=== PATIENT | male | born 1995 | race Caucasian/White ===

== ENCOUNTER 2016-06-16 13:52 | Inpatient (IN) | payer MEDICAID ==
[2016-06-16 13:52] VITALS: BMI 20.6
[2016-06-16 14:04] VITALS: O2SAT 99
--- NOTE | 2016-06-16 14:12 | ED PDOC ---
HPI: Psych/Substance Abuse Time Seen by Provider: 06/16/16 14:11 Chief Complaint (Nursing): Psychiatric Evaluation Chief Complaint (Provider): Crisis eval History Per: Patient Additional Complaint(s): Pt is a 20 yo male, PMH of bipolar disorder and anxiety, who presents to ED at this time for suicidal ideations. Pt denies any plan at this time. Pt also states he has more "isolation thoughts rather than suicidal thoughts. Denies homicidal ideations. Denies auditory hallucinations. + visual hallucinations. As per triage note, Pt reports difficulty breathing, insomnia, poor appetite. Pt asking for food at this time an denies any physical complaints. Past Medical History Reviewed: Historical Data, Nursing Documentation, Vital Signs Vital Signs: Last Vital Signs Temp 97.0 F L 06/16/16 14:01 Pulse 73 06/16/16 14:01 Resp 18 06/16/16 14:01 BP 123/76 06/16/16 14:01 Pulse Ox 99 06/16/16 14:01 - Medical History PMH: Anxiety, Bipolar Disorder, Depression, Seizures (onset 18 yrs old, last Dec 2015) Denies: Diabetes, Hepatitis, HIV, HTN, Chronic Kidney Disease, Sexually Transmitted Disease - Family History Family History: States: Unknown Family Hx - Social History Current smoker - smoking cessation education provided: No Ex-Smoker (has not smoked in the last 12 months): Yes Alcohol: None Drugs: Denies - Home Medications Home Medications: Ambulatory Orders Medication Instructions Recorded Azithromycin [Zithromax] 500 mg PO DAILY #5 tab 01/12/16 Lactobacillus Acidophilus [Bacid 1 cap PO BID #0 cap 01/12/16 Acidophilus] [place] Carbonate [Bern 300 mg PO BID #0 cap 01/12/16 Carbonate 300MG] OXcarbazepine [Trileptal] 600 mg PO BID #0 tab 01/12/16 Promethazine/Codeine 10 ml PO Q8 PRN #0 udc 01/12/16 [Phenergan/Codeine Oral Syrup] traZODone [Desyrel] 50 mg PO HS #0 tab 01/12/16 Cephalexin [cephalexin] 500 mg PO BID #20 cap 02/08/16 Clindamycin [Cleocin] 300 mg PO TID #30 cap 02/08/16 - Allergies Allergies/Adverse Reactions: Allergies Allergy/AdvReac Type Severity Reaction Status Date / Time No Known Allergies Allergy Verified 05/02/16 19:14 Review of Systems ROS Statement: Except As Marked, All Systems Reviewed And Found Negative Physical Exam - Reviewed Nursing Documentation Reviewed: Yes Vital Signs Reviewed: Yes - Physical Exam Appears: Positive for: Well, Non-toxic, No Acute Distress Head Exam: Positive for: ATRAUMATIC, NORMAL INSPECTION, NORMOCEPHALIC Skin: Positive for: Normal Color, Warm, DRY Eye Exam: Positive for: EOMI, Normal appearance, PERRL ENT: Positive for: Normal ENT Inspection Neck: Positive for: Normal, Painless ROM Cardiovascular/Chest: Positive for: Regular Rate, Rhythm Respiratory: Positive for: CNT, Normal Breath Sounds Gastrointestinal/Abdominal: Positive for: Normal Exam, Bowel Sounds, Soft Back: Positive for: Normal Inspection Extremity: Positive for: Normal ROM Neurologic/Psych: Positive for: Alert, Oriented - Laboratory Results Result Diagrams: 06/16/16 16:50 06/16/16 16:50 - ECG O2 Sat by Pulse Oximetry: 99 Medical Decision Making Medical Decision Making: Pt underwent crisis eval, see note. Pt medically cleared fro admission. CBC and COMP resulted WNL UDS (-) Alcohol (-) medically cleared for admission at this time. Pt has been calm and cooperative during exam. Tolerated food tray without difficult. Disposition - Clinical Impression Clinical Impression: Bipolar disorder - Patient ED Disposition Is Patient to be Admitted: Yes - Disposition Disposition Time: 19:26 Condition: STABLE - POA Present On Arrival: None
[2016-06-16 17:36] LABS: BASO % 0.7 % (0.0-2.0); EOS % 0.7 % (0.0-4.0); LYMPH # 1.9 K/uL (1.0-4.3); LYMPH % 29.7 % (20.0-40.0); MEAN CELL VOLUME 92.5 fl (80.0-94.0); MEAN CORPUSCULAR HEMOGLOBIN 30.4 pg (27.0-31.0); MEAN CORPUSCULAR HGB CONC 32.9 g/dL (33.0-37.0); MEAN PLATELET VOLUME 9.3 fl (7.2-11.7); MONO # 0.5 K/uL (0.0-0.8); MONO % 7.4 % (0.0-10.0); NEUT # 3.9 K/uL (1.8-7.0); NEUT % 61.5 % (50.0-75.0); NRBC % 0.1 % (0.0-0.0); RED CELL DISTRIBUTION WIDTH 13.7 % (11.5-14.5); WHITE BLOOD COUNT 6.4 K/uL (4.8-10.8)
[2016-06-16 17:51] LABS: ALB/GLOB RATIO 1.2 (1.0-2.1); ALCOHOL SERUM < 10 mg/dl (0-10); ALKALINE PHOSPHATASE 114 U/L (38-126); ALT/SGPT 23 U/L (21-72); AST/SGOT 25 U/L (17-59); BILIRUBIN,TOTAL 0.8 mg/dl (0.2-1.3); BLOOD UREA NITROGEN 16 mg/dl (9-20); CALCIUM 10.5 mg/dL (8.4-10.2); CARBON DIOXIDE 26 mmol/L (22-30); CHLORIDE 102 mmol/L (98-107); GFR AFRICAN-AMERICAN > 60; GLUCOSE,RANDOM 122 mg/dL (75-110); SODIUM 140 mmol/l (132-148); TOTAL PROTEIN 9.9 G/DL (6.3-8.2)
[2016-06-16] MEDS ORDERED: DiphenhydrAMINE 50 mg/ml Inj IM PRN (21:23)
[2016-06-16] MEDS ORDERED: Alum-Mag Hydrox-Simethicone Susp (30 mL) PO PRN (21:23)
[2016-06-16] MEDS ORDERED: Magnesium Hydroxide Susp 30 ml UD PO PRN (21:23)
[2016-06-17 08:15] LABS: T4 6.12 ug/dl (5.5-11.0)
[2016-06-17 08:29] LABS: THYROID STIMULATING HORMONE 1.63 mIU/ML (0.46-4.68)
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
--- NOTE | 2016-06-17 23:12 | CP.PCM.CON ---
History of Present Illness - History of Present Illness History of Present Illness: Attending: Dr Kay Reason for Consult: Management of seizure disorder Chief Complaint: Suicidal Ideation HPI: 20 years old male with Hx of Pneumonia, Bipolar disorder not taking his medication,Seizure, the last episode was summer, multiple prior admissions for inpatient Psychiatric management.He presented to the ED for Suicidal ideation.No homicidal thoughts.No hallucinations, Pt reports difficulty breathing, insomnia, poor appetite. PMH: Anxiety, Bipolar Disorder,Suicide attempts, Depression, Seizures (onset 18 yrs old, last Dec 2015) PSH: No known surgical hx SH: Former Smoker; Occasional Alcohol; Last Marijuana use, one year ago; Last cocaine use 6 months ago; Last Opiates 3 onths ago, works in a [employer] and lives with the family. FK: No hereditary diseases Allergies: NKDA Review of Systems - Constitutional Constitutional: Headache. absent: Anorexia, Chills, Fatigue, Fever, Lethargy - EENT Eyes: absent: Diplopia, Photophobia, Requires Corrective Lenses, Sees Flashes Ears: absent: Decreased Hearing, Ear Discharge, Ear Pain, Tinnitus Nose/Mouth/Throat: Nasal Congestion. absent: Epistaxis, Nasal Trauma, Sinus Pain, Sinus Pressure, Sore Throat - Cardiovascular Cardiovascular: absent: Chest Pain, Edema, Leg Edema, Lightheadedness, Orthopnea - Respiratory Respiratory: Cough. absent: Dyspnea, Wheezing, Stridor - Gastrointestinal Gastrointestinal: absent: Constipation, Melena, Nausea, Vomiting - Genitourinary Genitourinary: absent: Dysuria, Flank Pain, Hematuria, Freq UTI - Musculoskeletal Musculoskeletal: absent: Abnormal Gait, Arthralgias, Joint Swelling, Myalgias Additional comments: Disesthesias to both feet. - Integumentary Integumentary: absent: Pruritus, Rash, Skin Ulcer, Sores, Striae, Swelling - Neurological Neurological: Headaches. absent: Confusion, Frequent Falls, Memory Loss, Weakness - Psychiatric Psychiatric: Anxiety, Depression, Panic Attacks, Suicidal Ideation. absent: Confusion, Memory Loss - Endocrine Endocrine: absent: Excessive Sweating, Palpitations, Polydipsia, Polyphagia, Polyuria - Hematologic/Lymphatic Hematologic: absent: Easy Bleeding, Easy Bruising Past Patient History - Infectious Disease Hx of Infectious Diseases: None - Tetanus Immunizations Tetanus Immunization: Unknown - Past Medical History & Family History Past Medical History?: Yes - Past Social History Smoking Status: Heavy Smoker > 10 Cigarettes Daily Chewing Tobacco Use: No Cigar Use: No Alcohol: Social Drugs: Cannabis, Cocaine Home Situation {Lives}: With Family - CARDIAC Hx Cardiac Disorders: No Hx Hypertension: No - PULMONARY Hx Respiratory Disorders: No Hx Tuberculosis: No - NEUROLOGICAL Hx Seizures: Yes (onset 18 yrs old, last Dec 2015) - HEENT Hx HEENT Problems: No - RENAL Hx Chronic Kidney Disease: No - ENDOCRINE/METABOLIC Hx Endocrine Disorders: No - HEMATOLOGICAL/ONCOLOGICAL Hx Blood Disorders: No Hx Human Immunodeficiency Virus (HIV): No - INTEGUMENTARY Hx Dermatological Problems: No - MUSCULOSKELETAL/RHEUMATOLOGICAL Hx Falls: Yes - GASTROINTESTINAL Hx Gastrointestinal Disorders: No - GENITOURINARY/GYNECOLOGICAL Hx Sexually Transmitted Disorders: No - PSYCHIATRIC Hx Bipolar Disorder: Yes Hx Substance Use: Yes (1 year ago) - SURGICAL HISTORY Hx Surgeries: No - ANESTHESIA Hx Anesthesia: No Meds Allergies/Adverse Reactions: Allergies Allergy/AdvReac Type Severity Reaction Status Date / Time No Known Allergies Allergy Verified 05/02/16 19:14 - Medications Medications: Current Medications Acetaminophen (Tylenol 325mg Tab) 650 mg PO Q4 PRN PRN Reason: Pain, moderate (4-7) Al Hydrox/Mg Hydrox/Simethicone (Maalox Plus 30 Ml) 30 ml PO Q4 PRN PRN Reason: Dyspepsia Diphenhydramine HCl (Benadryl) 50 mg PO Q6 PRN PRN Reason: Extrapyramidal Symptoms Diphenhydramine HCl (Benadryl) 50 mg IM Q6 PRN PRN Reason: Extrapyramidal S/S Unable PO Diphenhydramine HCl (Benadryl) 50 mg PO HS PRN PRN Reason: Sleep Haloperidol (Haldol) 5 mg PO Q4 PRN PRN Reason: Agitation Haloperidol Lactate (Haldol) 5 mg IM Q4 PRN PRN Reason: Agitation, Unable to Take PO [place] Carbonate ([place] Carbonate 300mg) 300 mg PO Q12 KULWINDER Last Admin: 06/17/16 21:44 Dose: 300 mg Lorazepam (Ativan) 2 mg PO Q4 PRN PRN Reason: Anxiety/Agitation Last Admin: 06/17/16 22:40 Dose: 2 mg Lorazepam (Ativan) 2 mg IM Q4 PRN PRN Reason: Anxiety/Agitation,Unable PO Magnesium Hydroxide (Milk Of Magnesia) 30 ml PO HS PRN PRN Reason: Constipation Physical Exam - Constitutional Appears: No Acute Distress - Head Exam Head Exam: ATRAUMATIC, NORMAL INSPECTION, NORMOCEPHALIC - Eye Exam Eye Exam: EOMI, Normal appearance Pupil Exam: NORMAL ACCOMODATION, PERRL - ENT Exam ENT Exam: Mucous Membranes Moist, Normal Exam, Normal External Ear Exam, Normal Oropharynx - Neck Exam Neck exam: Positive for: Full Rom, Normal Inspection. Negative for: Lymphadenopathy, Tenderness - Respiratory Exam Respiratory Exam: Clear to Auscultation Bilateral. absent: Rales, Rhonchi, Wheezes - Cardiovascular Exam Cardiovascular Exam: REGULAR RHYTHM, RRR, +S1, +S2. absent: Gallop, JVD - GI/Abdominal Exam GI & Abdominal Exam: Normal Bowel Sounds, Soft. absent: Mass, Organomegaly, Tenderness - Rectal Exam Rectal Exam: Deferred - Extremities Exam Extremities exam: Positive for: joint swelling, normal inspection. Negative for : full ROM, tenderness - Back Exam Back exam: NORMAL INSPECTION. absent: CVA tenderness (L), CVA tenderness (R) - Neurological Exam Neurological exam: Alert, CN II-XII Intact, Normal Gait, Oriented x3, Reflexes Normal - Psychiatric Exam Psychiatric exam: Normal Affect, Normal Mood - Skin Skin Exam: Dry, Intact, Normal Color, Warm Results - Vital Signs Recent Vital Signs: Last Vital Signs Temp 99 F 06/17/16 15:38 Pulse 70 06/17/16 22:30 Resp 20 06/17/16 22:30 BP 116/65 06/17/16 22:30 Pulse Ox 99 06/16/16 20:35 - Labs Result Diagrams: 06/16/16 16:50 06/16/16 16:50 Labs: Laboratory Results - last 24 hr 06/17/16 06:30 Hemoglobin A1c 6.0 Triglycerides 106 Cholesterol 161 LDL Cholesterol Direct 70 HDL Cholesterol 57 Thyroxine (T4) 6.12 TSH 3rd Generation 1.63 RPR Nonreactive Assessment & Plan - Assessment and Plan (Free Text) Assessment: #. Bipolar Disorder #. Seizure Disorder Plan: 20 years old male with Hx of Pneumonia, Bipolar disorder not taking his medication,Seizure, the last episode was summer, multiple prior admissions for inpatient Psychiatric management.He presented to the ED for Suicidal ideation.No homicidal thoughts.No hallucinations, Pt reports difficulty breathing, insomnia, poor appetite. #. Bipolar Disorder - Psychiatric management #. Seizure Disorder. Patient has not taken antiseizure medication for six months and has not had a seizure during this time. - No seizure medication at this time - To follow up with His neurologist as outpatient #. Code Status Full - Date & Time Date: 06/17/16 Time: 23:12
--- NOTE | 2016-06-18 12:09 | PCM.PYCHPN ---
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 at times "i would becker asleep-was counseled". reports was not sleeping on a regular schedule" . in past has had suicidal ideations and had them day of admission-i was afraid and i took myself to er". staff report pt has been adherent with rx. denies any side effects with medications. Problems Identified/Issues Discussed: alteration in mood, alteration in adherence with medications, multiple stressors , admits to assumeing caring role of others, history of bipolar Medical Problems: per chart Diagnostic Results: per psychiatrist per medicine per nursing per social scientist per recreational therapy Medication Change: No Medical Record Reviewed: Yes Mental Status Examination - Cognitive Function Orientation: Person, Place, Situation, Time Attention: WNL Concentration: WNL Association: WNL Fund of Knowledge: WN Decription of patient's judgement and insights: impaired - Mood Mood: Anxious - Affect Affect: Broad - Speech Speech: Soft - Formal Thought Process Formal Thought Process: No Impairment Psychotic Thoughts and Behaviors: denies - Suicidal Ideation Plan: ideations with out plan, contracts for safety - Homicidal Ideation Homicidal Ideation: No Goal/Treatment Plan - Goal/Treatment Plan Need for Continued Stay: Remain at risks for inpatient hospitalization Progress Toward Problem(s) and Goals/Treatment Plan: inpt milieu adjust meds per status observation/vital signs per protocol and per clinical status obtain tsh level and lithium level and cmp 06/20/16 Estimated Date of D/C: 06/22/16 - Smoking Cessation Smoking Cessation Initiated: No Reason for not providing: deferred
--- NOTE | 2016-06-20 03:29 | PCM.PYCHPN ---
Psychiatric Progress Note - Psychiatric Progress Note Patient seen today, length of contact: chart reviewed, discussed with team Patient Chief Complaint: reports is feeling less depressed,mood is more stable, feels as though his treatment is leading in the right direction, sleeping improved slept 8 hrs + straight through-did receive prn lorazepam at [facility] for insomnia Problems Identified/Issues Discussed: alteration in mood improving, alteration in adherence with medications improved , multiple stressors acknowledges that is only control how you react to certain things , admits to assumeing caring role of others-reports realizes that has to work on setting limits , history of bipola reports less vacillation Medical Problems: per chart Diagnostic Results: per psychiatrist per medicine per nursing per social group worker per recreational therapy Medication Change: No Medical Record Reviewed: Yes Mental Status Examination - Cognitive Function Orientation: Person, Place, Situation, Time Attention: WNL Concentration: WNL Association: WNL Fund of Knowledge: WN Decription of patient's judgement and insights: improving - Mood Mood: Anxious - Affect Affect: Broad - Speech Speech: Soft - Formal Thought Process Formal Thought Process: No Impairment - Homicidal Ideation Homicidal Ideation: No Goal/Treatment Plan - Goal/Treatment Plan Need for Continued Stay: Remain at risks for inpatient hospitalization Progress Toward Problem(s) and Goals/Treatment Plan: inpt milieu adjust meds per status observation/vital signs per protocol and per clinical status obtain tsh level and lithium level and cmp 06/20/16 discharge planning in progress Estimated Date of D/C: 06/22/16 - Smoking Cessation Smoking Cessation Initiated: No Reason for not providing: defers
[2016-06-20 08:01] LABS: ALB/GLOB RATIO 1.4 (1.0-2.1); ALKALINE PHOSPHATASE 95 U/L (38-126); ALT/SGPT 19 U/L (21-72); AST/SGOT 26 U/L (17-59); BILIRUBIN,TOTAL 0.4 mg/dl (0.2-1.3); BLOOD UREA NITROGEN 14 mg/dl (9-20); CARBON DIOXIDE 25 mmol/L (22-30); CHLORIDE 104 mmol/L (98-107); GFR AFRICAN-AMERICAN > 60; GLUCOSE,RANDOM 94 mg/dL (75-110); POTASSIUM 4.4 MMOL/L (3.6-5.0); SODIUM 143 mmol/l (132-148)
[2016-06-20 08:23] LABS: THYROID STIMULATING HORMONE 2.15 mIU/ML (0.46-4.68)
--- NOTE | 2016-06-20 09:38 | PCM.PYCHPN ---
Psychiatric Progress Note - Psychiatric Progress Note Patient seen today, length of contact: Patient evaluated, chart reviewed, case discussed with team, 35 min Patient Chief Complaint: "I'm feeling better" Problems Identified/Issues Discussed: No significant events over the weekend. Patient reports that his mood is improving and denies adverse effects to [place]. He had a visitor this weekend , has been reading poetry and is goal oriented. He feels safe for discharge tomorrow. No thoughts of harming himself or others. No AH/VH/paranoia. He feels that his mood is stabilizing. Diagnostic Results: Li 0.4 on 06/20/16 Medication Change: Yes (Increase [place] to 300 mg PO TID) Medical Record Reviewed: Yes Mental Status Examination - Cognitive Function Orientation: Person, Place, Situation, Time Memory: Intact Attention: WNL Concentration: WNL Association: WNL Fund of Knowledge: [facility] Decription of patient's judgement and insights: Fair I/J - Mood Mood: Anxious - Affect Affect: Broad - Speech Speech: Appropriate - Formal Thought Process Formal Thought Process: No Impairment Psychotic Thoughts and Behaviors: No AH/VH/paranoia/delusions - Suicidal Ideation Suicidal Ideation: No - Homicidal Ideation Homicidal Ideation: No Goal/Treatment Plan - Goal/Treatment Plan Need for Continued Stay: Remain at risks for inpatient hospitalization Progress Toward Problem(s) and Goals/Treatment Plan: 20 yo male with h/o Bipolar disorder and seizure disorder, non-compliant with medications, needs acute inpatient hospitalization for treatment and stabilization. Plan: -Individual group and milieu tx -Increase [place] to 300 mg TID, Li level 0.4 on 06/20/16 -Medicine consult appreciated: no need to restart Trileptal at this time, patient will follow-up with his outpatient neurologist. -Discharge to home tomorrow with outpatient follow-up Estimated Date of D/C: 06/22/16
[2016-06-21 05:59] VITALS: BP 127/65; PULSE 84; RESP 18; TEMP 97.2
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
== END 2016-06-21 10:00 | disposition home or self-care (01) | DRG 430 ==
LOC: H.ER 13:52 → H.ERHOLD 19:20 → H.STEP 21:13
PROVIDERS: ADMIT Psychiatry & Neurology Psychiatry; ATTEND Psychiatry & Neurology Psychiatry
DX: F31.9 Bipolar disorder, unspecified (principal); R45.851 Suicidal ideations; G40.909 Epilepsy, unspecified, not intractable, without status epilepticus; F41.9 Anxiety disorder, unspecified; G47.00 Insomnia, unspecified; R63.0 Anorexia; R06.00 Dyspnea, unspecified; Z91.14 Patient's other noncompliance with medication regimen; Z91.5 Personal history of self-harm; Z87.891 Personal history of nicotine dependence

== ENCOUNTER 2016-10-13 15:20 | Inpatient (IN) | payer MEDICAID ==
[2016-10-13 15:20] VITALS: BMI 20.6
--- NOTE | 2016-10-13 15:59 | ED PDOC ---
HPI: Psych/Substance Abuse Time Seen by Provider: 10/13/16 15:52 Chief Complaint (Nursing): Psychiatric Evaluation History Per: Patient Onset/Duration Of Symptoms: Unknown Current Symptoms Are (Timing): Still Present Suicide/Self Injury Attempted (Context): None Modifying Factor(s): None Severity: Moderate Associated Symptoms: Anger, Agitation Additional Complaint(s): Increasing anger and agitation towards friends and family members for no apparent reason. Denies suicidal or homicidal ideation. Past Medical History Vital Signs: Last Vital Signs Temp 98.6 F 10/13/16 15:34 Pulse 88 10/13/16 15:34 Resp 18 10/13/16 15:34 BP 100/54 L 10/13/16 15:34 Pulse Ox 98 10/13/16 15:34 - Medical History PMH: Anxiety, Bipolar Disorder, Depression, Seizures (onset 18 yrs old, last Dec 2015) Denies: Diabetes, Hepatitis, HIV, HTN, Chronic Kidney Disease, Sexually Transmitted Disease - Family History Family History: States: Unknown Family Hx - Home Medications Home Medications: Ambulatory Orders Medication Instructions Recorded [place] Carbonate [[place] 300 mg PO TID #90 cap 06/20/16 Carbonate 300MG] - Allergies Allergies/Adverse Reactions: Allergies Allergy/AdvReac Type Severity Reaction Status Date / Time No Known Allergies Allergy Verified 05/02/16 19:14 Review of Systems ROS Statement: Except As Marked, All Systems Reviewed And Found Negative Psych: Positive for: Anxiety Physical Exam - Reviewed Nursing Documentation Reviewed: Yes Vital Signs Reviewed: Yes - Physical Exam Appears: Positive for: Non-toxic, No Acute Distress Head Exam: Positive for: ATRAUMATIC, NORMAL INSPECTION, NORMOCEPHALIC Skin: Positive for: Normal Color, Warm, DRY Eye Exam: Positive for: EOMI, Normal appearance, PERRL ENT: Positive for: Normal ENT Inspection Neck: Positive for: Normal, Painless ROM Cardiovascular/Chest: Positive for: Regular Rate, Rhythm Respiratory: Positive for: CNT, Normal Breath Sounds Gastrointestinal/Abdominal: Positive for: Normal Exam, Bowel Sounds, Soft Back: Positive for: Normal Inspection Extremity: Positive for: Normal ROM Neurologic/Psych: Positive for: Alert, Oriented - ECG O2 Sat by Pulse Oximetry: 98 Medical Decision Making Medical Decision Making: Medically stable for psychiatric admission Disposition - Clinical Impression Clinical Impression: Bipolar disorder - Patient ED Disposition Is Patient to be Admitted: Yes - Disposition Disposition Time: 16:59 Condition: FAIR - Pt Status Changed To: Hospital Disposition Of: Inpatient - Admit Certification Admit to Inpatient:: After my assessment, the patient will require hospitalization for at least two midnights. This is because of the severity of symptoms shown, intensity of services needed, and/or the medical risk in this patient being treated as an outpatient. - POA Present On Arrival: None
[2016-10-13 17:53] LABS: BASO % 0.2 % (0.0-2.0); EOS % 0.5 % (0.0-4.0); HEMOGLOBIN 13.7 g/dL (12.0-18.0); LYMPH # 1.5 K/uL (1.0-4.3); LYMPH % 20.5 % (20.0-40.0); MEAN CELL VOLUME 89.8 fl (80.0-94.0); MEAN CORPUSCULAR HEMOGLOBIN 30.1 pg (27.0-31.0); MEAN CORPUSCULAR HGB CONC 33.5 g/dL (33.0-37.0); MEAN PLATELET VOLUME 8.6 fl (7.2-11.7); MONO # 0.5 K/uL (0.0-0.8); MONO % 6.9 % (0.0-10.0); NEUT # 5.3 K/uL (1.8-7.0); NEUT % 71.9 % (50.0-75.0); NRBC % 0.1 % (0.0-0.0); RBC 4.56 Mil/uL (4.40-5.90); RED CELL DISTRIBUTION WIDTH 12.4 % (11.5-14.5); WHITE BLOOD COUNT 7.3 K/uL (4.8-10.8)
[2016-10-13 17:54] LABS: ALB/GLOB RATIO 1.6 (1.0-2.1); ALBUMIN 5.4 g/dL (3.5-5.0); ALT/SGPT 35 U/L (21-72); AST/SGOT 24 U/L (17-59); BLOOD UREA NITROGEN 17 mg/dl (9-20); CALCIUM 10.2 mg/dL (8.4-10.2); GFR AFRICAN-AMERICAN > 60; GFR NON-AFRICAN AMERICAN > 60
[2016-10-13 18:54] LABS: BARBITURATES, UR NEGATIVE (NEGATIVE); BENZODIAZEPINES, UR NEGATIVE (NEGATIVE); OPIATES, UR NEGATIVE (NEGATIVE); PHENCYCLIDINE, UR NEGATIVE (NEGATIVE)
[2016-10-13 19:11] VITALS: O2SAT 100
[2016-10-13] MEDS ORDERED: Alum-Mag Hydrox-Simethicone Susp (30 mL) PO PRN (20:16)
[2016-10-13] MEDS ORDERED: DiphenhydrAMINE 50 mg/ml Inj IM PRN (20:16)
[2016-10-13] MEDS ORDERED: Magnesium Hydroxide Susp 30 ml UD PO PRN (20:16)
[2016-10-13 20:26] VITALS: RESP 18
[2016-10-14 07:38] LABS: T4 6.39 ug/dl (5.5-11.0)
[2016-10-14] MEDS ORDERED: Pneumococcal 23-Valent Vaccine IM ONE (09:00)
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
--- NOTE | 2016-10-14 16:30 | CARD ---
APPROVED REPORT EKG Measurement Heart [id number] <Conclusion> Normal sinus rhythm with sinus arrhythmia ST elevation, probably due to early repolarization Borderline ECG
--- NOTE | 2016-10-15 12:09 | CP.PCM.CON ---
History of Present Illness - History of Present Illness History of Present Illness: 20 yo male with no significant PMH admitted to psyche unit because of aggressive and violent behaviour. Review of Systems - Review of Systems All systems: reviewed and no additional remarkable complaints except (aside from those mentioned above, 12 point system review were negative by me) Past Patient History - Infectious Disease Hx of Infectious Diseases: None - Tetanus Immunizations Tetanus Immunization: Unknown - Past Medical History & Family History Past Medical History?: Yes - Past Social History Smoking Status: Heavy Smoker > 10 Cigarettes Daily Alcohol: None Drugs: Cannabis - CARDIAC Hx Cardiac Disorders: No - PULMONARY Hx Respiratory Disorders: No - NEUROLOGICAL Hx Neurological Disorder: Yes Hx Seizures: Yes (onset 18yo,last seizures-december 2015) - HEENT Hx HEENT Problems: No - RENAL Hx Chronic Kidney Disease: No - ENDOCRINE/METABOLIC Hx Endocrine Disorders: No - HEMATOLOGICAL/ONCOLOGICAL Hx Blood Disorders: No - INTEGUMENTARY Hx Dermatological Problems: No - MUSCULOSKELETAL/RHEUMATOLOGICAL Hx Musculoskeletal Disorders: No - GASTROINTESTINAL Hx Gastrointestinal Disorders: No - GENITOURINARY/GYNECOLOGICAL Hx Genitourinary Disorders: No - PSYCHIATRIC Hx Substance Use: No - SURGICAL HISTORY Hx Surgeries: No - ANESTHESIA Hx Anesthesia: No Meds Allergies/Adverse Reactions: Allergies Allergy/AdvReac Type Severity Reaction Status Date / Time No Known Allergies Allergy Verified 05/02/16 19:14 - Medications Medications: Current Medications Acetaminophen (Tylenol 325mg Tab) 650 mg PO Q4 PRN PRN Reason: Pain, moderate (4-7) Last Admin: 10/14/16 21:37 Dose: 650 mg Al Hydrox/Mg Hydrox/Simethicone (Maalox Plus 30 Ml) 30 ml PO Q4 PRN PRN Reason: Dyspepsia Diphenhydramine HCl (Benadryl) 50 mg IM Q6 PRN PRN Reason: Extrapyramidal S/S Unable PO Diphenhydramine HCl (Benadryl) 50 mg PO HS PRN PRN Reason: Sleep Haloperidol (Haldol) 5 mg PO Q4 PRN PRN Reason: Agitation Haloperidol Lactate (Haldol) 5 mg IM Q4 PRN PRN Reason: Agitation, Unable to Take PO Lamotrigine (Lamictal) 25 mg PO BID KULWINDER Last Admin: 10/15/16 09:39 Dose: 25 mg Lorazepam (Ativan) 2 mg IM Q4 PRN PRN Reason: Anxiety/Agitation,Unable PO Lorazepam (Ativan) 1 mg PO Q4 PRN PRN Reason: Anxiety/Agitation Magnesium Hydroxide (Milk Of Magnesia) 30 ml PO HS PRN PRN Reason: Constipation Trazodone HCl (Desyrel) 50 mg PO HS [facility] Last Admin: 10/14/16 21:34 Dose: 50 mg Physical Exam - Constitutional Appears: No Acute Distress - Head Exam Head Exam: ATRAUMATIC - Eye Exam Eye Exam: absent: Scleral icterus - ENT Exam ENT Exam: Mucous Membranes Moist - Neck Exam Neck exam: Negative for: Meningismus - Respiratory Exam Respiratory Exam: absent: Rhonchi, Wheezes, Respiratory Distress - Cardiovascular Exam Cardiovascular Exam: REGULAR RHYTHM, +S1, +S2 - GI/Abdominal Exam GI & Abdominal Exam: Soft. absent: Tenderness - Rectal Exam Rectal Exam: Deferred - Neurological Exam Neurological exam: Alert, Oriented x3 - Psychiatric Exam Psychiatric exam: Normal Affect - Skin Skin Exam: Dry, Intact Results - Vital Signs Recent Vital Signs: Last Vital Signs Temp 97.7 F 10/15/16 09:31 Pulse 74 10/15/16 09:31 Resp 18 10/15/16 09:31 BP 107/66 10/15/16 09:31 Pulse Ox 100 10/13/16 18:15 - Labs Result Diagrams: 10/13/16 17:30 10/13/16 17:30 Labs: Laboratory Results - last 24 hr 10/14/16 06:00 RPR Nonreactive Assessment & Plan (1) Aggressive behavior Status: Acute Comment: psyche is managing
--- NOTE | 2016-10-15 20:04 | PCM.PYCHPN ---
Psychiatric Progress Note - Psychiatric Progress Note Patient seen today, length of contact: chart reviewed case discussed with team Patient Chief Complaint: was at home getting upset, having fights with mother and girlfriend, now reports feeling calmer (beginning), does report chronic hx of seizures with last reported seizure 01/09. has not reportedly seen neurologist in apprx. [address] hubbard. reports headaches that begin in the front of his head and go to the back of his head, feel as though it is like a cramp, is rated 5/10, no n/v denies photophobia/phonophobia. reports increases during day. was seen by hospitalist and prescribed claritin wthout relief denies sinus tenderness. denies any known injury. Problems Identified/Issues Discussed: alteration in mood Medical Problems: per chart Diagnostic Results: per psychiatry per medicine per nursing per social work per recreational therapy DSM 5 Symptoms Update: somewhat less ability headaches hx of seizures Medication Change: No Medical Record Reviewed: Yes Consults ordered or reviewed: neurology consult dr hubbard Mental Status Examination - Cognitive Function Orientation: Person, Place, Situation, Time Attention: WNL Concentration: WNL Association: WN Fund of Knowledge: [facility] Decription of patient's judgement and insights: somewhat impaired - Mood Mood: Neutral - Affect Affect: Broad - Speech Speech: Soft - Formal Thought Process Formal Thought Process: No Impairment Psychotic Thoughts and Behaviors: denied - Homicidal Ideation Homicidal Ideation: No Goal/Treatment Plan - Goal/Treatment Plan Need for Continued Stay: Remain at risks for inpatient hospitalization Progress Toward Problem(s) and Goals/Treatment Plan: inpt milieu therapy vital signs and clinical observation per protocol and per clinical status adjust meds per status neurology consult discharge planning in progress Estimated Date of D/C: 10/19/16 - Smoking Cessation Smoking Cessation Initiated: No
--- NOTE | 2016-10-16 21:01 | PCM.PYCHPN ---
Psychiatric Progress Note - Psychiatric Progress Note Patient seen today, length of contact: chart reviewed case discussed with team Patient Chief Complaint: reports feeling mood is improving, does report on going headaches, reports that chronic-somewhat relieved with tylenol. consult pending by dr. poon reports headaches that begin in the front of his head and go to the back of his head, feel as though it is like a cramp, is rated 5/10, no n/v denies photophobia/phonophobia. reports increases during day. was seen by hospitalist and prescribed claritin wthout relief denies sinus tenderness. denies any known injury. staff report pt has been adherent with rx-reviewed with pt that consult is pending with dr key. Problems Identified/Issues Discussed: alteration in mood Medical Problems: per chart Diagnostic Results: per psychiatry per medicine per nursing per social work per recreational therapy DSM 5 Symptoms Update: alteration in mood Medication Change: No Medical Record Reviewed: Yes Consults ordered or reviewed: pt being followed by hospitalist Mental Status Examination - Cognitive Function Orientation: Person, Place, Situation, Time Attention: WNL Concentration: WNL Association: WN Fund of Knowledge: [facility] Decription of patient's judgement and insights: somewhat impaired - Mood Mood: Neutral - Affect Affect: Broad - Speech Speech: Soft - Formal Thought Process Formal Thought Process: No Impairment Psychotic Thoughts and Behaviors: denied - Homicidal Ideation Homicidal Ideation: No Goal/Treatment Plan - Goal/Treatment Plan Need for Continued Stay: Remain at risks for inpatient hospitalization Progress Toward Problem(s) and Goals/Treatment Plan: inpt milieu therapy vital signs and clinical observation per protocol and per clinical status adjust meds per status neurology consult pending discharge planning in progress Estimated Date of D/C: 10/19/16 - Smoking Cessation Smoking Cessation Initiated: No Reason for not providing: pt deferred
[2016-10-17 09:09] VITALS: BP 125/68; PULSE 83; TEMP 97.5
--- NOTE | 2016-10-17 10:04 | PCM.PYCHDC ---
Mental Status Examination - Mental Status Examination Orientation: Person, Place, Situation, Time Memory: Intact Mood: Neutral Affect: Broad Speech: Appropriate Attention: WNL Concentration: WNL Association: WNL Fund of Knowledge: WNL Formal Thought Process: No Impairment Description of patient's judgement and insight: fair Psychotic Thoughts and Behaviors: denies any a/v hallucinations Suicidal Ideation: No Current Homicidal Ideation?: No Discharge Summary - Discharge Note Reason for Hospitalization: pt expressed having problems with anger and mood lability Psychiatric History (includes Medical, Family, Personal Hx): history of bipolar 2 disorder, history of polysubtstance abuse Consultations:: List each consultation separately and include: 1. Reason for request. 2. Findings. 3. Follow-up Consultations: seen by hospitalist Summary of Hospital Course include:: 1. Description of specific treatment plan utilized for patients during their course of treatmen. 2. Summarize the time- course for resolution of acute symptoms and/or regressed behaviors. 3. Describe issues identified and worked on during hospitalization. 4. Describe medication utilized. 5. Describe medical problems identified and treated. 6. Reassessment of suicide risk Summary of Hospital Course: pt is a 20 yo male with history of cannabis abuse, but now sober and was in outpt treatment, but not adherent for last few months. pt took him self to the ER stating that he is becoming more angry and irritable. he states he gets very excitable and alienates people when he becomes too energetic. he states he has gotten into fights because of this. he states that he has been fighting with his mother and girlfriend a lot and has had some violent thoughts towards them both- although he does not want to act on them. he denies any psychotic symptoms. he states that he stopped lithium because it wasn't helping. he states that trazodone has helped him sleep. pt states that he is studying to take his GED and left the [employer] program and [employer]. he states he is sober. hospital course pt was admitted to [facility] and oriented to the unit. pt was placed on routine safety protocols. pt was started on medications to target his mood lability- lamictal and insomnia- trazodone. he tolerated these medications and his symptoms improved. he signed a 48 hour notice. he was not meeting any criteria for screening for involuntary hospitalization and was not expressing any suicidal or homicidal thoughts. he was exhibiting good behavioral control. he was agreeing to follow up care at the time of dischage. - Final Diagnosis (DSM 5) Condition upon Discharge: FAIR DSM 5: bipolar 2 disorder Disposition: HOME/ ROUTINE Follow-up Treatment Plan: follow up with aftercare as directed take medications as prescribed do not use alcohol, tobacco or other illicit substances call 911 if any suicidal or homicidal thoughts. Prescriptions/Medication Reconciliation: lamoTRIgine [Lamictal] 25 mg PO BID #30 tab Loratadine [Claritin] 10 mg PO DAILY #30 tab traZODone [Desyrel] 50 mg PO HS #30 tab - Smoking Cessation Smoking Cessation Medication prescribed: No - Antipsychotic Medications Pt discharged on 2 or more routine antipsychotic medications: No
== END 2016-10-17 11:50 | disposition home or self-care (01) | DRG 430 ==
LOC: H.ER 15:20 → H.ERHOLD 16:57 → H.PSYCH 20:05
PROVIDERS: ADMIT Psychiatry & Neurology Psychiatry; ATTEND Psychiatry & Neurology Psychiatry
PROC: GZHZZZZ Group Psychotherapy (ICD-10-PCS; principal; 2016-10-13)
PROC: GZ56ZZZ Individual Psychotherapy, Supportive (ICD-10-PCS; 2016-10-13)
DX: F31.81 Bipolar II disorder (principal); G40.909 Epilepsy, unspecified, not intractable, without status epilepticus; F12.21 Cannabis dependence, in remission; F17.210 Nicotine dependence, cigarettes, uncomplicated; G47.00 Insomnia, unspecified